=== PATIENT | male | born 1950 | race Caucasian/White ===

== ENCOUNTER 2019-07-20 19:34 | Emergency (ER) | payer MEDICARE, BC ==
[2019-07-20 19:44] VITALS: BP 158/90; PULSE 104
[2019-07-20] MEDS ORDERED: Ondansetron 4 MG/2 ML SDV IVPUSH ONE (19:55)
[2019-07-20] MEDS ORDERED: Ketorolac 30 MG/ML SDV IVPUSH ONE (19:55)
[2019-07-20] MEDS ORDERED: Sodium Chloride 0.9% 1,000 ML IV ONE (19:55)
[2019-07-20] MEDS ORDERED: Sodium Chloride 0.9% 10 ML Syringe FLUSH PRN (19:55)
--- NOTE | 2019-07-20 20:02 | EDM.PDOC ---
ED HPI GENERAL MEDICAL PROBLEM - General Chief Complaint: Flank Pain Stated Complaint: ? KIDNEY STONES Time Seen by Provider: 07/20/19 19:50 Source of Information: Reports: Patient History Limitations: Reports: No Limitations - History of Present Illness INITIAL COMMENTS - FREE TEXT/NARRATIVE: Patient is a 68-year-old gentleman who presents to the emergency department this evening via private vehicle with a complaint of right flank pain. Patient states he has a long history of renal calculi. Patient states symptoms began on Sunday and has been intermittent since. Seems to be getting worse today, so he became concerned and presented to the emergency department. Patient describes pain as a moving ache that travels from his right flank toward his groin. He does not feel any testicular pain. Patient noticed that his urine is dark. Patient denies chest pain, shortness of breath, fever, trauma, nausea , vomiting, diarrhea, or blood in stool. Onset: Gradual Onset Date: 07/18/19 Duration: Day(s): Location: Reports: Abdomen, Back Quality: Reports: Ache, Pressure Severity: Mild Improves with: Reports: None Worsens with: Reports: None Associated Symptoms: Reports: No Other Symptoms. Denies: Nausea/Vomiting Right Lower Flank Pain Score (Numeric/FACES): 5 - Related Data Allergies Allergy/AdvReac Type Severity Reaction Status Date / Time ciprofloxacin Allergy Rash Verified 07/20/19 19:40 iodine Allergy Burning Verified 07/20/19 19:40 Penicillins Allergy Itching Verified 07/20/19 19:40 simvastatin [From Zocor] Allergy intolerance Verified 07/20/19 19:40 Sulfa (Sulfonamide Allergy Itching Verified 07/20/19 19:40 Antibiotics) triamcinolone Allergy Burning Verified 07/20/19 19:40 Home Meds: Home Meds Ascorbate Calcium [Vitamin C] 1 tab PO DAILY 10/16/14 [History] Aspirin [Halfprin] 1 tab PO Q2D 10/16/14 [History] Metoprolol Succinate [Toprol XL] 25 mg PO DAILY 10/16/14 [History] amLODIPine Besylate [Amlodipine Besylate] 5 mg PO DAILY 10/16/14 [History] diphenhydrAMINE HCL [Diphenhydramine HCl] 1 tab PO BEDTIME 10/16/14 [History] Naproxen Sodium [Aleve] 220 mg PO BID PRN 11/02/14 [History] Cholecalciferol (Vitamin D3) [Vitamin D3] 5,000 unit PO DAILY 07/20/19 [History] Ezetimibe 10 mg PO DAILY 07/20/19 [History] Naproxen Sodium [Aleve] 220 mg PO DAILY 07/20/19 [History] Ubidecarenone [Co Q-10] 100 mg PO DAILY 07/20/19 [History] Past Medical History Other HEENT History: wears glasses Cardiovascular History: Reports: High Cholesterol, Hypertension, Other (See Below) Other Respiratory History: "seasonal allergies"; has an inhaler but states he hasnt used for 1 year Gastrointestinal History: Reports: Cholelithiasis Genitourinary History: Reports: Prostate Disorder, Renal Calculus, Other (See Below) Other Genitourinary History: states he recently had an elevated PSA and will be seeing Dr. Washburn at the end of the month for that Other Oncologic History: PSA is rising - has prostate biopsy - Past Surgical History Male Surgical History: Reports: Other (See Below) Musculoskeletal Surgical History: Reports: Shoulder Surgery ED ROS GENERAL - Review of Systems Review Of Systems: Comprehensive ROS is negative, except as noted in HPI. Constitutional: Reports: No Symptoms HEENT: Reports: No Symptoms Respiratory: Reports: No Symptoms Cardiovascular: Reports: No Symptoms Endocrine: Reports: No Symptoms GI/Abdominal: Reports: Abdominal Pain (Right lower quadrant), Other (Right flank pain). Denies: Black Stool, Bloody Stool, Constipation, Diarrhea, Melena : Reports: Frequency, Hematuria, Urgency Musculoskeletal: Reports: No Symptoms Skin: Reports: No Symptoms Neurological: Reports: No Symptoms Psychiatric: Reports: No Symptoms Hematologic/Lymphatic: Reports: No Symptoms Immunologic: Reports: No Symptoms ED EXAM, RENAL/ - Physical Exam Exam: See Below Exam Limited By: No Limitations General Appearance: Alert, WD/WN, Mild Distress Throat/Mouth: Normal Inspection, Normal Oropharynx, No Airway Compromise Head: Atraumatic, Normocephalic Neck: Normal Inspection Respiratory/Chest: No Respiratory Distress, Lungs Clear, Normal Breath Sounds, No Accessory Muscle Use, Chest Non-Tender Cardiovascular: Regular Rate, Rhythm, No Murmur GI/Abdominal: Normal Bowel Sounds, Soft, Non-Tender, No Organomegaly, No Distention, No Abnormal Bruit, No Mass (Male) Exam: No Hernia. No: Hernia, Inguinal Lymphadenopathy, Scrotal Swelling, Scrotum Tenderness (L), Scrotum Tenderness (R), Testicular Tenderness (L), Testicular Tenderness (R) Back Exam: CVA Tenderness (R). No: CVA Tenderness (L) Extremities: Normal Inspection, No Pedal Edema Neurological: Alert, Oriented, Normal Cognition Psychiatric: Normal Affect, Normal Mood Skin Exam: Warm, Dry, Intact, Normal Color, No Rash Lymphatic: No Adenopathy Course - Vital Signs Last Recorded V/S: Last Vital Signs Temp 97.6 F 07/20/19 19:36 Pulse 104 H 07/20/19 19:36 Resp 18 07/20/19 19:36 BP 158/90 H 07/20/19 19:36 Pulse Ox 95 07/20/19 19:36 - Orders/Labs/Meds Orders: Active Orders 24 hr Category Date Time Status Peripheral IV Care [RC] . DIRECTED Care 07/20/19 19:56 Ordered Abdomen Pelvis wo Cont [CT] Stat Exams 07/20/19 19:55 Ordered Sodium Chloride 0.9% [Saline Flush] Med 07/20/19 19:55 Ordered 10 ml FLUSH Q8HR PRN Peripheral IV Insertion Adult [OM.PC] Routine Oth 07/20/19 19:55 Ordered Medication Orders Sodium Chloride (Saline Flush) 10 ml FLUSH Q8HR PRN PRN Reason: keep vein open Labs: Laboratory Tests 07/20/19 07/20/19 07/20/19 Range/Units 19:40 20:03 20:03 WBC 11.77 H (5.00-10.00) 10^3/uL RBC 5.09 (4.50-6.00) 10^6/uL Hgb 14.7 (13.0-17.0) g/dL Hct 44.1 (40.0-52.0) % MCV 86.6 (82.0-92.0) fL MCH 28.9 (27.0-31.0) pg MCHC 33.3 (32.0-36.0) g/dL RDW 13.0 (11.5-14.5) % Plt Count 260 (150-400) 10^3/uL MPV 10.0 (7.4-10.4) fL Immature Gran % (Auto) 0.2 (0.0-5.0) % Neut % (Auto) 78.4 H (50.0-70.0) % Lymph % (Auto) 10.0 L (20.0-40.0) % [place] % (Auto) 10.6 H (2.0-8.0) % Eos % (Auto) 0.5 L (1.0-3.0) % Baso % (Auto) 0.3 (0.0-1.0) % Immature Gran # (Auto) 0.02 (0.00-0.50) 10^3/uL Neut # (Auto) 9.23 H (2.50-7.00) 10^3/uL Lymph # (Auto) 1.18 (1.00-4.00) 10^3/uL [place] # (Auto) 1.25 H (0.10-0.80) 10^3/uL Eos # (Auto) 0.06 L (0.10-0.30) 10^3/uL Baso # (Auto) 0.03 (0.00-0.10) 10^3/uL Sodium 149 H (136-145) mmol/L Potassium 4.1 (3.3-5.3) mmol/L Chloride 108 (98-115) mmol/L Carbon Dioxide 25.5 (21.0-32.0) mmol/L Anion Gap 19.6 H (5-15) mmol/L BUN 25 (6-25) mg/dL Creatinine 2.26 H D (0.51-1.17) mg/dL Est Cr Clr Drug Dosing 34.24 mL/min Estimated GFR (MDRD) 29 mL/min Glucose 111 H (75 - 99) mg/dL Calcium 9.0 (8.7-10.3) mg/dL Total Bilirubin 1.6 H (0.2-1.0) mg/dL AST 14 L (15-37) U/L ALT 22 (12-78) U/L Alkaline Phosphatase 92 (46-116) IU/L Total Protein 7.2 (6.4-8.2) g/dL Albumin 3.81 (3.00-4.80) g/dL Specimen Type . Urine Color Yellow (YELLOW) Urine Appearance Clear (CLEAR) Urine pH 5.5 (5.0-9.0) Ur Specific [place] >= 1.030 (1.005-1.030) Urine Protein Negative (NEGATIVE) mg/dL Urine Glucose (UA) Negative (NEGATIVE) mg/dL Urine Ketones Negative (NEGATIVE) mg/dL Urine Occult Blood Negative (NEGATIVE) Urine Nitrite Negative (NEGATIVE) Urine Bilirubin Negative (NEGATIVE) Urine Urobilinogen 0.2 (0.2-1.0) E.U./dL Ur Leukocyte Esterase Negative (NEGATIVE) Meds: Medications Generic Name Dose Route Start Last Admin Trade Name Freq PRN Reason Stop Dose Admin Sodium Chloride 10 ml 07/20/19 19:55 Saline Flush FLUSH Q8HR PRN keep vein open Discontinued Medications Generic Name Dose Route Start Last Admin Trade Name Freq PRN Reason Stop Dose Admin Hydrocodone Bitart/Acetaminophen 4 tab 07/20/19 20:58 Elma 325-5 Mg PO 07/20/19 20:59 ONETIME ONE Sodium Chloride 1,000 mls @ 999 mls/hr 07/20/19 19:55 07/20/19 20:19 Normal Saline IV 07/20/19 20:55 999 mls/hr .BOLUS ONE Administration Ketorolac Tromethamine 30 mg 07/20/19 19:55 07/20/19 20:21 Toradol IVPUSH 07/20/19 19:56 30 mg ONETIME ONE Administration Ondansetron HCl 4 mg 07/20/19 19:55 07/20/19 20:20 Zofran IVPUSH 07/20/19 19:56 4 mg ONETIME ONE Administration Ondansetron HCl 16 mg 07/20/19 20:58 Zofran Odt PO 07/20/19 20:59 ONETIME ONE Tamsulosin HCl 0.4 mg 07/20/19 20:58 Flomax PO 07/20/19 20:59 ONETIME ONE - Radiology Interpretation Free Text/Narrative:: CT abdomen and pelvis without contrast shows multiple right and left renal calculi, largest being 4 mm. There is moderate hydronephrosis on the right - Re-Assessments/Exams Free Text/Narrative Re-Assessment/Exam: 07/20/19 20:54 Patient afebrile, vital signs stable, pain resolved with 30 mg Toradol, 1 L of normal saline given, renal function within normal limits, urinalysis negative. Patient will follow-up at [facility] tomorrow for nephrology referral in one to 2 days. Departure - Departure Time of Disposition: 20:55 Disposition: Home, Self-Care 01 Condition: Good Clinical Impression: Kidney stones Hydronephrosis Qualifiers: Hydronephrosis type: unspecified Qualified Code(s): N13.30 - Unspecified hydronephrosis - Discharge Information Instructions: Kidney Stones, [id number] Referrals: Massiel Jin, [employer] [Primary Care Provider] - Forms: ED Department Discharge Additional Instructions: Follow-up at [facility] tomorrow to set up nephrology appointment. Return to emergency department sooner symptoms continue or worsen. Sepsis Event Note - Evaluation Sepsis Screening Result: No Definite Risk - Focused Exam Vital Signs: Vital Signs Temp Pulse Resp BP Pulse Ox 07/20/19 19:36 97.6 F 104 H 18 158/90 H 95 Date Exam was Performed: 07/20/19 Time Exam was Performed: 21:00 - My Orders Last 24 Hours: My Active Orders 07/20/19 19:55 Abdomen Pelvis wo Cont [CT] Stat Sodium Chloride 0.9% [Saline Flush] 10 ml FLUSH Q8HR PRN Peripheral IV Insertion Adult [OM.PC] Routine 07/20/19 19:56 Peripheral IV Care [RC] . DIRECTED - Assessment/Plan Last 24 Hours: My Active Orders 07/20/19 19:55 Abdomen Pelvis wo Cont [CT] Stat Sodium Chloride 0.9% [Saline Flush] 10 ml FLUSH Q8HR PRN Peripheral IV Insertion Adult [OM.PC] Routine 07/20/19 19:56 Peripheral IV Care [RC] . DIRECTED Assessment:: Renal calculi Plan: Follow-up at [facility] tomorrow
[2019-07-20 20:47] LABS: ANION GAP 19.6 mmol/L (5-15)
[2019-07-20] MEDS ORDERED: Ondansetron 4 MG Tab.DIS PO ONE (20:58)
[2019-07-20] MEDS ORDERED: Acetaminophen/HYDROcodone 325-5 MG Tab PO ONE (20:58)
[2019-07-20] MEDS ORDERED: Tamsulosin 0.4 MG Cap.ER PO ONE (20:58)
--- NOTE | 2019-07-21 08:01 | CT ---
[id number] CT/CT Abdomen Pelvis WO IV Exam: CT Abdomen Pelvis WO IV Clinical Data: RIGHT FLANK PAIN COMPARISON: CORRELATION IS MADE WITH THE EXAM OF MAY 22, 2015 FINDINGS: An 8 mm radiopaque calculus is seen in the region of the right ureter on image 84, series 2 There is 4 mm radiopaque calculus in the region of the right UVJ This is on image 135, series 2 There is a bladder calculus Other smaller calculi of both kidneys are seen There is stranding around the right kidney There is minimal stranding around the left kidney. Bilateral parapelvic cysts are better identified on the CAT scan of May 22, 2015 A phlebolith is seen in the left side of the pelvis on image 130, series 2 A contrast urogram would help sort out parapelvic cysts versus actual hydronephrosis Currently it appears that hydronephrosis is just on the right side The gallbladder has been removed The aorta, adrenals, liver, spleen, and pancreas otherwise are overall unremarkable The pelvis shows no mass or adenopathy IMPRESSION: 1 CM MID RIGHT URETERAL CALCULUS MODERATE RIGHT-SIDED HYDRONEPHROSIS BILATERAL PARAPELVIC CYSTS SMALL BILATERAL RENAL CALCULI 4 MM CALCULUS REGION RIGHT UVJ CONSIDER UROLOGY CONSULTATION AND CT UROGRAM REPORT PROVIDED AT TIME OF EXAM Chris Hartman MD 07/21/19 0759 Thank you for allowing us to participate in the care of your patient.
== END 2019-07-20 21:45 | disposition home or self-care (01) ==
LOC: KA.ED 19:34
DX: N13.2 Hydronephrosis with renal and ureteral calculous obstruction (principal); E78.00 Pure hypercholesterolemia, unspecified; I10 Essential (primary) hypertension; Z91.09 Other allergy status, other than to drugs and biological substances; Z79.899 Other long term (current) drug therapy; Z88.2 Allergy status to sulfonamides; Z88.1 Allergy status to other antibiotic agents
CPT/HCPCS: 36415; 74176; 80053; 81003; 85025; 96361; 96374; 96375; 99284-25; A9270-GY; J1885; J2405; J7030

== ENCOUNTER 2024-08-02 23:21 | Emergency (ER) | payer BC, MEDICARE ==
[2024-08-02 23:36] LABS: BASOPHILS ABSOLUTE AUTO 0.02 10^3/uL (0.00-0.10); BASOPHILS PERCENT AUTO 0.3 % (0.0-1.0); EOSINOPHILS ABSOLUTE AUTO 0.06 10^3/uL (0.10-0.30); EOSINOPHILS PERCENT AUTO 0.8 % (1.0-3.0); HEMATOCRIT 48.9 % (40.0-52.0); HEMOGLOBIN 15.7 g/dL (13.0-17.0); IMMATURE GRAN ABSOLUTE AUTO 0.01 10^3/uL (0.00-0.04); IMMATURE GRAN PERCENT AUTO 0.1 % (0.0-0.4); LYMPHOCYTES ABSOLUTE AUTO 2.15 10^3/uL (1.00-4.00); LYMPHOCYTES PERCENT AUTO 27.5 % (20.0-40.0); MEAN CORPUSCULAR HEMOGLOBIN 29.6 pg (27.0-31.0); MEAN CORPUSCULAR HGB CONC 32.1 g/dL (32.0-36.0); MEAN CORPUSCULAR VOLUME 92.1 fL (82.0-92.0); MEAN PLATELET VOLUME 10.3 fL (7.4-10.4); MONOCYTES ABSOLUTE AUTO 0.77 10^3/uL (0.10-0.80); MONOCYTES PERCENT AUTO 9.9 % (2.0-8.0); NEUTROPHILS PERCENT AUTO 61.4 % (50.0-70.0); PLATELET COUNT,PLT 213 10^3/uL (150-400); RED BLOOD CELL COUNT 5.31 10^6/uL (4.50-6.00); WHITE BLOOD CELL COUNT,WBC 7.81 10^3/uL (5.00-10.00)
[2024-08-02] MEDS: Sodium Chloride 0.9% 1,000 ML IV ONE (23:48)
[2024-08-02 23:54] LABS: ALBUMIN 4.23 g/dL (3.40-5.00); ANION GAP 14.2 mmol/L (5-15); BILIRUBIN TOTAL 1.2 mg/dL (0.2-1.0); CALCIUM 9.8 mg/dL (8.7-10.3); CARBON DIOXIDE,CO2 26.9 mmol/L (21.0-32.0); CREATININE 1.31 mg/dL (0.51-1.17); PROTEIN TOTAL,TP 7.4 g/dL (6.4-8.2)
[2024-08-02 23:59] LABS: EST CRCL DRUG DOSING (CG) 55.09 mL/min; POTASSIUM,K 4.1 mmol/L (3.5-5.1)
[2024-08-03 00:02] LABS: INR 0.9 (0.9-1.1); PROTHROMBIN TIME 9.8 SEC (9.1-12.0); PTT,PARTIAL THROMBOPLSTIN TIME 23.9 SEC (21.6-32.4)
[2024-08-03] MEDS: LORazepam 2 MG/ML SDV IVPUSH ONE (00:13)
[2024-08-03 00:30] VITALS: BP 167/89; PULSE 102
== END 2024-08-03 00:33 | disposition home or self-care (01) ==
LOC: KA.ED 23:21
DX: I10 Essential (primary) hypertension (principal); E78.00 Pure hypercholesterolemia, unspecified; Z88.1 Allergy status to other antibiotic agents; Z91.041 Radiographic dye allergy status; Z88.2 Allergy status to sulfonamides; Z88.0 Allergy status to penicillin; Z88.8 Allergy status to other drugs, medicaments and biological substances; Z79.82 Long term (current) use of aspirin; Z79.899 Other long term (current) drug therapy
CPT/HCPCS: 36415; 70450; 80053; 82947; 83605; 84484; 85025; 85610; 85730; 93005; 93010; 96361; 96374; 99284; 99284-25; J2060; J7030